=== PATIENT | female | born 1975 | race African-American/Black ===

== ENCOUNTER 2018-05-01 15:35 | Emergency (ER) | payer MEDICAID ==
[~2018-05-01] VITALS: Ht 167.6 cm; Wt 95.5 kg
[2018-05-01 16:09] VITALS: BP 125/80
[2018-05-01] MEDS ORDERED: AMOXICILLIN 500 MG CAPSULE PO ONE (16:30)
[2018-05-01] MEDS ORDERED: DEXAMETHASONE 4 MG TABLET PO ONE (16:30)
[2018-05-01] MEDS ORDERED: ACETAMINOPHEN 500 MG TABLET PO ONE (16:30)
[2018-05-01] MEDS ORDERED: KETOROLAC 30 MG/1 ML IM ONE (16:30)
[2018-05-01] MEDS ORDERED: DEXAMETHASONE 4 MG TABLET ONE (16:41)
[2018-05-01] MEDS ORDERED: ACETAMINOPHEN 500 MG TABLET ONE (16:41)
[2018-05-01] MEDS ORDERED: KETOROLAC 30 MG/1 ML ONE (16:41)
== END 2018-05-01 17:09 | disposition home or self-care (01) ==
LOC: ED 17:03
DX: J03.00 Acute streptococcal tonsillitis, unspecified (principal)
CPT/HCPCS: 96372; 99284; J1885

== ENCOUNTER 2018-12-03 18:38 | Emergency (ER) | payer OTHER, MEDICAID ==
[~2018-12-03] VITALS: Ht 167.6 cm; Wt 94.2 kg
[2018-12-03 18:41] VITALS: BP 151/71
--- NOTE | 2018-12-03 18:48 | NUR ---
Pt ambulates with steady gait and balance to ED room from triage while using cellphone to video chat. Pt on cellphone video chatting in RME. NADN. No obvious defecits observed.
--- NOTE | 2018-12-03 18:57 | NUR ---
Provided report to VENANCIO Hollingsworth. All questions answered. VENANCIO Hollingsworth to assume care of pt.
[2018-12-03] MEDS ORDERED: DEXAMETHASONE 4 MG TABLET PO ONE (19:00)
[2018-12-03] MEDS ORDERED: DEXAMETHASONE 4 MG TABLET ONE (19:18)
== END 2018-12-03 19:52 | disposition home or self-care (01) ==
LOC: ED 19:20
DX: J02.8 Acute pharyngitis due to other specified organisms (principal); B97.89 Other viral agents as the cause of diseases classified elsewhere
CPT/HCPCS: 87081; 87880; 99283

== ENCOUNTER 2018-12-05 14:55 | Emergency (ER) | payer OTHER, MEDICAID ==
[~2018-12-05] VITALS: Ht 167.6 cm; Wt 93.0 kg
[2018-12-05 15:23] VITALS: BP 121/75
--- NOTE | 2018-12-05 16:33 | NUR ---
VA's completed by this RN, reviewed by KEYONNA Acevedo dc. pt given dc instructions and script, educated regarding albuterol, tessalon and polytrim rx. pt a&o, resps even and unlabored, nadn. pt amb to dc desk with steady gait.
== END 2018-12-05 16:34 ==
LOC: ED 16:05
DX: H10.021 Other mucopurulent conjunctivitis, right eye (principal)
CPT/HCPCS: 71046; 87081; 87880; 99284